=== PATIENT | female | born 1985 | race Caucasian/White ===

== ENCOUNTER 2018-07-21 12:42 | Emergency (ER) | payer BC ==
[2018-07-21 12:58] VITALS: BP 135/78; PULSE 88; RESP 17; TEMP 98.6; O2SAT 100; BMI 24.6
--- NOTE | 2018-07-21 13:20 | ED PDOC ---
Arrival/HPI - General Chief Complaint: Shortness Of Breath Time Seen by Provider: 07/21/18 12:51 Historian: Patient - History of Present Illness Narrative History of Present Illness (Text): 07/21/18 13:09 32 year old female, with no significant past medical history, presents to the Emergency Department for evaluation of anxiety associated with trouble breathing since prior to arrival. Patient states she recently received the news of her uncle expiring, building on to her current stress. Her symptoms feel like her anxiety in the past. Patient states taking Xanax fro anxiety in the past with improvement to symptoms. Denies SI or HI. Patient denies any fever, chills, nausea, vomiting, diarrhea, abdominal pain, chest pain, or any other complaints. PMD: [facility], [place] Time/Duration: Prior to Arrival Symptom Course: Unchanged Activities at Onset: Light Context: Work Past Medical History - Provider Review Nursing Documentation Reviewed: Yes - Past History Past History: Non-Contributing - Tetanus Immunization Tetanus Immunization: Unknown - Cardiac Hx Cardiac Disorders: Yes Hx Heart Murmur: Yes - Pulmonary Hx Respiratory Disorders: No - Neurological Hx Neurological Disorder: No - HEENT Hx HEENT Disorder: No - Renal Hx Renal Disorder: No - Endocrine/Metabolic Hx Endocrine Disorders: No - Hematological/Oncological Hx Blood Disorders: No - Integumentary Hx Dermatological Disorder: No - Musculoskeletal/Rheumatological Hx Musculoskeletal Disorders: No - Gastrointestinal Hx Gastrointestinal Disorders: Yes Hx Gastroesophageal Reflux: Yes - Genitourinary/Gynecological Hx Genitourinary Disorders: No - Psychiatric Hx Psychophysiologic Disorder: No Hx Depression: No Hx Emotional Abuse: No Hx Physical Abuse: No Hx Substance Use: No - Surgical History Other/Comment: LEEP - Suicidal Assessment Feels Threatened In Home Enviroment: No Family/Social History - Physician Review Nursing Documentation Reviewed: Yes Family/Social History: No Known Family HX Smoking Status: Unknown If Ever Smoked Hx Alcohol Use: Yes Frequency of alcohol use: Socially Hx Substance Use: No Hx Substance Use Treatment: No Allergies/Home Meds Allergies/Adverse Reactions: Allergies No Known Allergies Allergy (Verified 07/21/18 12:57) Home Medications: Home Meds Medication Instructions Recorded Confirmed Montelukast Sodium [Singulair] 10 mg PO DAILY 03/07/13 03/07/13 Review of Systems - Physician Review All systems were reviewed & negative as marked: Yes - Review of Systems Constitutional: absent: Fevers Respiratory: SOB. absent: Cough Cardiovascular: absent: Chest Pain Gastrointestinal: absent: Abdominal Pain, Diarrhea, Nausea, Vomiting Musculoskeletal: absent: Back Pain, Neck Pain Neurological: absent: Headache, Dizziness Psychiatric: Anxiety Physical Exam Vital Signs Reviewed: Yes Vital Signs Temp Pulse Resp BP Pulse Ox 07/21/18 12:57 98.6 F 88 17 135/78 100 Temperature: Afebrile Blood Pressure: Normal Pulse: Regular Respiratory Rate: Normal Appearance: Positive for: Well-Appearing, Non-Toxic, Comfortable Pain Distress: None Mental Status: Positive for: Alert and Oriented X 3 - Systems Exam Head: Present: Atraumatic, Normocephalic Pupils: Present: PERRL Extroacular Muscles: Present: EOMI Conjunctiva: Present: Normal Mouth: Present: Moist Mucous Membranes Neck: Present: Normal Range of Motion Respiratory/Chest: Present: Clear to Auscultation, Good Air Exchange. No: Respiratory Distress, Accessory Muscle Use Cardiovascular: Present: Regular Rate and Rhythm, Normal S1, S2. No: Murmurs Abdomen: No: Tenderness, Distention, Peritoneal Signs Back: Present: Normal Inspection Upper Extremity: Present: Normal Inspection. No: Cyanosis, Edema Lower Extremity: Present: Normal Inspection. No: Edema Neurological: Present: GCS=15, CN II-XII Intact, Speech Normal, Motor Func Grossly Intact, Normal Sensory Function Skin: Present: Warm, Dry, Normal Color. No: Rashes Psychiatric: Present: Alert, Oriented x 3, Normal Insight, Normal Concentration Medical Decision Making ED Course and Treatment: 07/21/18 13:10 Impression: 32 year old female presents to the Emergency Department complaining of anxiety and trouble breathing. Differential Diagnosis included but are not limited to: Anxiety Plan: -- EKG -- Reassess and disposition Prior Visits: Notes and results from previous visits were reviewed. Progress Notes: 13:10 EKG: Ordered, reviewed, and independently interpreted the EKG. Rate : 87 BPM Rhythm : NSR Interpretation : No ST-segment elevations or depressions, no T-wave inversions, normal intervals. Patient's EKG is normal. She at this point does not want any Xanax because she feels well enough to control her anxiety herself. She would appreciate a prescription for Xanax which I prescribed to her only as needed. She will make sure to follow up with her primary care doctor and return to the ED if symptoms worsen or any other concern. She also received a work note for 2 days off of work. - EKG Interpretation Interpreted by ED Physician: Yes Type: 12 lead EKG - Scribe Statement The provider has reviewed the documentation as recorded by the Scribe Sandra Hall. All medical record entries made by the Scribe were at my direction and personally dictated by me. I have reviewed the chart and agree that the record accurately reflects my personal performance of the history, physical exam, medical decision making, and the department course for this patient. I have also personally directed, reviewed, and agree with the discharge instructions and disposition. Disposition/Present on Arrival - Present on Arrival Any Indicators Present on Arrival: No History of DVT/PE: No History of Uncontrolled Diabetes: No Urinary Catheter: No History of Decub. Ulcer: No History Surgical Site Infection Following: None - Disposition Have Diagnosis and Disposition been Completed?: Yes Diagnosis: Anxiety Disposition: HOME/ ROUTINE Disposition Time: 13:33 Patient Plan: Discharge Patient Problems: Current Active Problems Problem Status Onset Anxiety Acute Condition: GOOD Discharge Instructions (ExitCare): Anxiety, Adult (DC) Additional Instructions: KACY LARSEN, thank you for letting us take care of you today. Your provider was Keanu Lazo DO and you were treated for Anxiety. The emergency medical care you received today was directed at your acute symptoms. If you were prescribed any medication, please fill it and take as directed. It may take several days for your symptoms to resolve. Return to the Emergency Department if your symptoms worsen, do not improve, or if you have any other problems. Please contact your doctor or call one of the physicians/clinics you have been referred to that are listed on the Patient Visit Information form that is included in your discharge packet. Bring any paperwork you were given at discharge with you along with any medications you are taking to your follow up visit. Our treatment cannot replace ongoing medical care by a primary care provider outside of the emergency department. Thank you for allowing the [facility] [employer] team to be part of your care today. If you had an X-Ray or CT scan: A Radiologist will review the ED reading if any change in treatment is needed we will contact you. If you had a blood, urine, or wound culture: It will take several days for the results, if any change in treatment is needed we will contact you. If you had an STI test: It will take 48 hours for the results. Please call after 1 week if you have not heard back. Prescriptions: ALPRAZolam HALF TABLET [Xanax HALF TABLET] 0.125 mg PO BID PRN #5 tab PRN Reason: Anxiety Referrals: Non [facility] Provider, [Non-Staff] - Follow up with primary Forms: WORK NOTE
--- NOTE | 2018-07-22 09:47 | CARD ---
APPROVED REPORT Date of service: 07/21/2018 EKG Measurement Heart [id number] <Conclusion> Normal sinus rhythm RVCD Normal ECG
== END 2018-07-21 14:04 | disposition home or self-care (01) ==
LOC: ED 12:42
DX: F41.9 Anxiety disorder, unspecified (principal)

== ENCOUNTER 2018-09-29 15:22 | Emergency (ER) | payer SELFPAY ==
[2018-09-29 15:23] VITALS: BMI 24.6
[2018-09-29 16:12] VITALS: RESP 18; TEMP 98.2; O2SAT 100
[2018-09-29 17:15] VITALS: BP 122/69; PULSE 78
[2018-09-29 17:34] LABS: URINE BILIRUBIN NEGATIVE (NEGATIVE); URINE BLOOD MODERATE (NEGATIVE); URINE GLUCOSE (UA) NEGATIVE (NEGATIVE); URINE LEUKOCYTE ESTERASE NEGATIVE Leu/uL (NEGATIVE); URINE PROTEIN NEGATIVE mg/dL (<30 mg/dL); URINE UROBILINOGEN 0.2 E.U./dL (<1 E.U./dL)
[2018-09-29 17:36] LABS: URINE APPEARANCE CLEAR (CLEAR); URINE COLOR LIGHT YELLOW (YELLOW)
[2018-09-29 17:39] LABS: URINE BACTERIA TRACE (NEG); URINE WBC NEGATIVE /hpf (0-6)
--- NOTE | 2018-09-29 17:53 | ED PDOC ---
Arrival/HPI - General Chief Complaint: Female Genitourinary Time Seen by Provider: 09/29/18 15:42 Historian: Patient - History of Present Illness Narrative History of Present Illness (Text): 09/29/18 18:24 32-year-old female presents today with a one-day history of vaginal irritation and dysuria and urinary frequency. Patient denies chest pain or shortness of breath. She denies fevers or chills. She denies dizziness or weakness. She denies abdominal pain. Patient denies recent sexual activity. Patient states that for the past 3 days she has been having oral sex with her partner. And said that yesterday he noticed an irritation around the area of the clitoris. Patient states she's noticed a slight increase in vaginal discharge. Patient denies back pain. No fevers or chills. Patient states she has a history of microscopic hematuria and has been followed by a urologist. No other complaints 1 Past Medical History - Provider Review Nursing Documentation Reviewed: Yes - Travel History Have you recently traveled outside [place] w/in the past 3 mons?: No - Past History Past History: Non-Contributing - Tetanus Immunization Tetanus Immunization: Unknown - Cardiac Hx Cardiac Disorders: Yes Hx Heart Murmur: Yes - Pulmonary Hx Respiratory Disorders: No - Neurological Hx Neurological Disorder: No - HEENT Hx HEENT Disorder: No - Renal Hx Renal Disorder: No - Endocrine/Metabolic Hx Endocrine Disorders: No - Hematological/Oncological Hx Blood Disorders: No - Integumentary Hx Dermatological Disorder: No - Musculoskeletal/Rheumatological Hx Musculoskeletal Disorders: No - Gastrointestinal Hx Gastrointestinal Disorders: Yes Hx Gastroesophageal Reflux: Yes - Genitourinary/Gynecological Hx Genitourinary Disorders: No - Psychiatric Hx Psychophysiologic Disorder: No Hx Depression: No Hx Emotional Abuse: No Hx Physical Abuse: No Hx Substance Use: No - Surgical History Other/Comment: LEEP - Anesthesia Hx Anesthesia: No Hx Anesthesia Reactions: No Hx Malignant Hyperthermia: No - Suicidal Assessment Feels Threatened In Home Enviroment: No Family/Social History - Physician Review Nursing Documentation Reviewed: Yes Family/Social History: Unknown Family HX Smoking Status: Unknown If Ever Smoked Hx Alcohol Use: Yes Hx Substance Use: No Hx Substance Use Treatment: No Allergies/Home Meds Allergies/Adverse Reactions: Allergies No Known Allergies Allergy (Verified 07/21/18 12:57) Home Medications: Home Meds Medication Instructions Recorded Confirmed Montelukast Sodium [Singulair] 10 mg PO DAILY 03/07/13 03/07/13 Review of Systems - Review of Systems Constitutional: absent: Fatigue, Fevers Respiratory: absent: SOB, Cough Cardiovascular: absent: Chest Pain, Palpitations Gastrointestinal: absent: Abdominal Pain, Constipation, Diarrhea, Nausea, Vomiting Genitourinary Female: Dysuria, Frequency, Vaginal Discharge. absent: Vaginal Bleeding Musculoskeletal: absent: Arthralgias, Back Pain, Neck Pain Skin: absent: Rash, Pruritis Neurological: absent: Headache, Dizziness Psychiatric: absent: Anxiety, Depression Physical Exam Vital Signs Reviewed: Yes Vital Signs Temp Pulse Resp BP Pulse Ox 09/29/18 17:15 78 18 122/69 100 09/29/18 16:10 98.2 F 86 18 124/73 100 Temperature: Afebrile Blood Pressure: Normal Pulse: Regular Respiratory Rate: Normal Appearance: Positive for: Well-Appearing, Non-Toxic, Comfortable Pain Distress: None Mental Status: Positive for: Alert and Oriented X 3 - Systems Exam Head: Present: Atraumatic Neck: Present: Normal Range of Motion Respiratory/Chest: Present: Clear to Auscultation, Good Air Exchange. No: Respiratory Distress, Accessory Muscle Use Cardiovascular: Present: Regular Rate and Rhythm, Normal S1, S2. No: Murmurs Abdomen: No: Tenderness, Distention, Peritoneal Signs, Rebound, Guarding Genitourinary/Pelvic Exam: Present: Cervical os Closed, Other (chaparoned by Lita DENNY Student). No: Normal External Genitalia (there is a small abrasion noted to the left side of the clitoral villa; no erythema; minimally tender. ), Vaginal Discharge, Vaginal Bleeding, Adenexal Tenderness, Adenexal Mass, Cervical Motion Tendernes, Odor Back: Present: Normal Inspection Upper Extremity: Present: Normal ROM Lower Extremity: Present: Normal ROM Neurological: Present: GCS=15 Skin: Present: Warm, Dry, Normal Color. No: Rashes Psychiatric: Present: Alert, Oriented x 3 Medical Decision Making ED Course and Treatment: 09/29/18 18:32 32-year-old female with dysuria urinary frequency and a vaginal lesion noted to the left side of the clitoral villa. pt with possible small abrasion vs herpetic lesion to left clitoral villa. no erythema. hcg negative GC and Chlamydia cultures are pending. The patient has refused prophylactic treatment for gonorrhea and Chlamydia. I discussed in depth with the patient my concern for possible herpetic lesion versus simple vaginal irritation. I have offered acyclovir and the patient has refused. Patient was advised to follow-up with the medical aides teacher within the next 2 days. She was advised taking antibiotics for urinary tract infection and returning if symptoms worsen persist or if new concerning symptoms develop Patient was advised that gonorrhea cultures should be complete in 5 days and if she does not hear from us she can call to check on her results. Patient verbalizes understanding of discharge instructions and need for immediate followup. all aspects of this case were discussed the attending of record. Impression: Vaginal irritation, dysuria, urinary frequency, hematuria Bactrim 1 tablet twice daily x 3 days follow up with the cash analyst within the next 2 days. Use acyclovir 3 times daily x 7 days. Increase fluids return immediately if symptoms worsen,persist or if new symptoms develop. - Lab Interpretations Lab Results: Lab Results 09/29/18 17:00: Urine Color Light yellow, Urine Appearance Clear, Urine pH 6.0, Ur Specific [place] >= 1.030, Urine Protein Negative, Urine Glucose (UA) Negative, Urine Ketones Trace H, Urine Blood Moderate H, Urine Nitrate Negative, Urine Bilirubin Negative, Urine Urobilinogen 0.2, Ur Leukocyte Esterase Negative, Urine RBC 2 - 5, Urine WBC Negative, Ur Epithelial Cells 1 - 3, Urine Bacteria Trace Disposition/Present on Arrival - Present on Arrival Any Indicators Present on Arrival: No History of DVT/PE: No History of Uncontrolled Diabetes: No Urinary Catheter: No History of Decub. Ulcer: No History Surgical Site Infection Following: None - Disposition Have Diagnosis and Disposition been Completed?: Yes Diagnosis: Vaginal irritation, Urinary frequency, Hematuria, Dysuria Disposition: HOME/ ROUTINE Disposition Time: 17:51 Patient Plan: Discharge Patient Problems: Current Active Problems Problem Status Onset Dysuria Acute Hematuria Acute Urinary frequency Acute Vaginal irritation Acute Condition: GOOD Discharge Instructions (ExitCare): Dysuria, Adult (DC), Vaginal Discharge in Adults Additional Instructions: Bactrim 1 tablet twice daily x 3 days follow up with the cash analyst within the next 2 days. Use acyclovir 3 times daily x 7 days. Increase fluids return immediately if symptoms worsen,persist or if new symptoms develop. Prescriptions: Acyclovir [Zovirax] 400 mg PO TID #21 tab Sulfamethoxazole/Trimethoprim [Bactrim DS 800 mg-160 mg] 1 tab PO BID #6 tab [facility] - Follow up with primary [facility] [Outside] - Follow up with primary Gissel Cooney MD [Medical Doctor] - Follow up with primary Yony Byrne MD [Staff Provider] - Follow up with primary Forms: [employer] (Uzbek), WORK NOTE
== END 2018-09-29 18:21 | disposition home or self-care (01) ==
LOC: ED 15:22
DX: N89.8 Other specified noninflammatory disorders of vagina (principal); R30.0 Dysuria; R31.9 Hematuria, unspecified; R35.0 Frequency of micturition